=== PATIENT | female | born 1965 | race Caucasian/White ===

== ENCOUNTER 2019-03-13 13:20 | Inpatient (IN) | payer OTHER ==
[~2019-03-13] VITALS: Ht 160 cm; Wt 81.6 kg
[~2019-03-13 13:20] MED LIST: ASPIR 8181 MG PO; BUSPIRONE HCL10 MG PO; CEFTRIAXONE2 G1 IVPB; CEFTRIAXONE40 MG/M1 IV; CEFUROXIME500 MG PO; CIPRO500 MG PO; CIPROFLOXACIN500 M1 PO; CLEOCIN HCL150 MG PO; COLACE100 MG PO; DOCUSATE SODIU100 MG PO; GLUCOTROL5 MG PO; HYDROCODONE-AP1 EAC6 PO; LANTUS SOL100 UNIT/1 SQ; LEVAQUIN 500 M500 M2 PO; LIPITOR 20 MG T20 M1 PO; MEDROLDOSEPACK PO; METFORMIN HCL500 MG PO; MINOCIN100 MG PO; MIRALAX17 GM PO; NORCO 5-325 TA1 EACH PO; ONDANSETRON HCL4 M2 PO; OXYCODONE HCL5 MG PO; PERCOCET 10-321 EACH PO; PERCOCET 5-3251 EACH PO; PERCOCET PO; PHENERGAN 25 MG25 M1 PO; PREDNISONE 20 M20 MG PO; PROAIR HFA8.5 GM INH; REGLAN 10 MG TA10 MG PO; ROCEPHIN 11 GM/1001 IV; TESSALON PERLE100 MG PO; TUMS PO; TYLENOL325 MG PO; ZESTRIL10 MG PO; ZPAK PO; ZYVOX600 MG PO
[2019-03-13] MEDS ORDERED: OMEPRAZOLE 20 M20 M1 PO (13:25)
[2019-03-13] MEDS ORDERED: GABAPENTIN 100100 MG PO (13:26)
[2019-03-13] MEDS ORDERED: ELIQUIS5 MG PO (13:26)
[2019-03-13 14:16] LABS: BE -2.6 mmol/L (-2 to +3); PCO2 32.5 mmHg (35.0-45.0); PO2 76.9 mmHg (75.0-100.0); pH 7.426 (7.340-7.450)
[2019-03-13 14:51] LABS: ABSOLUTE BASOPHILS 0.1 thou/uL (0.0-0.2); ABSOLUTE LYMPHOCYTES 2.2 thou/uL (0.8-5.3); ABSOLUTE MONOCYTES 0.6 thou/uL (0.0-1.2); ABSOLUTE NEUTROPHILS 15.5 thou/uL (1.6-8.1); BASOPHILS 0.6 %; HEMATOCRIT 35.8 % (37.0-47.0); HEMOGLOBIN 11.8 gm/dL (12.0-15.0); MCH 27.6 pg (26.0-34.0); MCHC 32.9 g/dL (28.0-37.0); MONOCYTES 3.4 %; MPV 7.5 fl. (7.2-11.1); NUCLEATED RBCS 0 /100WBC; PLATELET COUNT* 692 thou/uL (150-400); RBC 4.26 mil/uL (4.20-5.00); RDW-CV 16.5 % (10.5-14.5); WBC 18.5 thou/uL (4.0-11.0)
[2019-03-13 15:13] LABS: NT-PRO BRAIN NAT PEPTIDE 1344 pg/mL (<300); TROPONIN-I LEVEL <0.06 ng/mL (<0.06)
--- NOTE | 2019-03-13 15:25 | NUR ---
RIGHT BASILIC VESSEL ACCESSED FOR 5 TAIW[place]ESE DUAL LUMEN PICC. LINE PRE-TRIMMED TO 40 CM AND ADVANCED TO THE ZERO LOW WITH NO RESISTANCE MET. UPPER ARM CIRCUMFERENCE ABOVE INSERTION SITE = 13". SHERLOCK MAGNET AND 3CG CONFIRMATION OF TIP TERMINATION AT THE CAVOATRIAL JUNCTION APPRECIATED. GUIDE WIRE REMOVED, LINE FLUSHED AND INSERTIO SITE DRESSED. REPORT GIVEN TO NURSING STAFF AND DR KENDRICK.
[2019-03-13 15:28] LABS: CREATININE 1.2 mg/dL (0.6-1.3); POTASSIUM 3.9 mmol/L (3.5-5.1)
[2019-03-13 15:32] LABS: ALBUMIN 2.8 g/dL (3.4-5.0); MAGNESIUM 1.6 mg/dL (1.8-2.4); TOTAL BILIRUBIN 0.1 mg/dL (<0.1-1.0); TOTAL PROTEIN 7.3 g/dL (6.4-8.2)
[2019-03-13 16:13] LABS: URINE BILIRUBIN NEGATIVE (Negative); URINE BLOOD TRACE (Negative); URINE CLARITY CLOUDY; URINE COLOR YELLOW; URINE GLUCOSE-RANDOM 2+ (Negative); URINE KETONES NEGATIVE (Negative); URINE LEUKOCYTES-REFLEX NEGATIVE (Negative); URINE NITRITE-REFLEX NEGATIVE (Negative); URINE PROTEIN 3+ (Negative); URINE SPECIFIC GRAVITY >= 1.030 (1.005-1.030); URINE UROBILINOGEN 0.2 E.U./dl (0.2-1.0)
[2019-03-13 16:41] LABS: MUCUS None Seen strn/LPF (None Seen); SQUAMOUS >10 Many /LPF (0-3)
[2019-03-13 16:42] LABS: AMORPHOUS URATES Moderate /LPF (None Seen); HYALINE CASTS 0-3 Few /LPF (None Seen)
[2019-03-13 16:43] LABS: URINE RBC 0-2 Rare /HPF (0-2); URINE WBC-REFLEX 0-5 Rare /HPF (0-5)
--- NOTE | 2019-03-13 20:12 | NUR ---
ATTEMPTED TO CALL REPORT TO FLOOR. NURSE BUSY AND WILL CALL BACK
[2019-03-13 21:05] VITALS: BP 189/102
[2019-03-14 02:06] LABS: GLYCOHEMOGLOBIN (HGB A1C) 8.7 % (4.8-5.6)
[2019-03-14 04:49] LABS: HEMATOCRIT 31.3 % (37.0-47.0); MCHC 32.1 g/dL (28.0-37.0); MPV 7.7 fl. (7.2-11.1); RBC 3.72 mil/uL (4.20-5.00); RDW-CV 16.2 % (10.5-14.5); WBC 19.1 thou/uL (4.0-11.0)
--- NOTE | 2019-03-14 05:02 | NUR ---
PT ARRIVED 03/13/19 AT 2100, PT ALERT AND ORIENTED X4, TRANSFERS FROM WHEELCHAIR TO BED INDEPENDENTLY, PT INTRODUCED TO SURROUNDINGS, ASSESSMENT CVOMPLETE, PT COMPLAINS OF NECK/SHOULDER AREA PAIN AND LLQ PAIN FROM COUGHING, PAIN IMPROVED WITH IV PAIN MEDS, PT CONTINUES TO EXPERIENCE NAUSEA, NO EMESIS, IV FLUIDS INFUSING PT RESTS QUIETLY IN BED AT THIS TIME ON ROOM AIR WITH NO S/S ACUTE DISTRESS
[2019-03-14 05:44] LABS: ALBUMIN 2.4 g/dL (3.4-5.0); CALCIUM 8.2 mg/dL (8.5-10.1); CREATININE 1.3 mg/dL (0.6-1.3); MAGNESIUM 1.2 mg/dL (1.8-2.4); POTASSIUM 3.1 mmol/L (3.5-5.1); TOTAL BILIRUBIN 0.2 mg/dL (<0.1-1.0); TOTAL PROTEIN 6.6 g/dL (6.4-8.2)
[2019-03-14 08:10] VITALS: BP 186/99
--- NOTE | 2019-03-14 10:07 | NUR ---
MET WITH PT TO DISCUSS HOME SITUATION/DC PLANNING. PT LIVES WITH FRIEND IN [place]. SHE USES WALKER, W/C AND HAS PROSTHESIS THAT NEEDS RESIZED SINCE LOSING WT. PT HAS HAD HH IN PAST, CANNOT REMEMBER NAME OF AGENCY. SHE HAS ALSO BEEN TO SNF AT [facility] RECENT DEC. STATES HAS BEEN IN AND OUT OF HOSPITALS RECENTLY. PT FOLLOWS WITH DR BELCHER ON [facility]. SHE PLANS TO RETURN HOME AT DC. WILL FOLLOW
[2019-03-14 16:00] VITALS: BP 129/70
[2019-03-14 20:00] VITALS: BP 158/84
[2019-03-15] VITALS: BP 120/75
[2019-03-15 05:15] LABS: HEMATOCRIT 29.4 % (37.0-47.0); HEMOGLOBIN 9.4 gm/dL (12.0-15.0); MCH 27.3 pg (26.0-34.0); MCV 85.4 fL (80.0-100.0); MPV 7.6 fl. (7.2-11.1); RBC 3.44 mil/uL (4.20-5.00); RDW-CV 16.9 % (10.5-14.5); WBC 14.7 thou/uL (4.0-11.0)
[2019-03-15 05:25] LABS: ALBUMIN 2.3 g/dL (3.4-5.0); CALCIUM 8.2 mg/dL (8.5-10.1); CREATININE 1.1 mg/dL (0.6-1.3); MAGNESIUM 1.7 mg/dL (1.8-2.4); POTASSIUM 4.4 mmol/L (3.5-5.1); TOTAL BILIRUBIN 0.1 mg/dL (<0.1-1.0); TOTAL PROTEIN 6.2 g/dL (6.4-8.2)
[2019-03-15 08:00] VITALS: BP 144/79
[2019-03-15 16:00] VITALS: BP 160/80
--- NOTE | 2019-03-15 17:58 | NUR ---
ASSUMED CARE OF PATIENT AT APPROX 0730. ALERT AND OREINTED X4. ASSESSMENT COMPLETED AND CHARTED, VSS ON ROOM AIR. PAIN AND NAUSEA MANAGED WITH FENTANYL AND ZOFRAN. PATIENT NOTES TIME PAIN MEDICATION IS GIVEN AND CALLS OUT EXACTLY 4 HOURS LATER FOR MORE. PATIENT IS OBSERVED RESTING COMFORTABLY IN BED OR CHAIR UPON ROUNDS. UP WITH ASSIST TO BEDSIDE COMMODE OR WITH WHEELCHAIR TO THE BATHROOM. DIET ADVANCED TO FULL LIQUIDS AND IV FLUIDS DISCONTINUED TODAY. [place] PATCH TO LEFT SHOULDER/BACK AREA FOR PAIN. PATIENT HAS LEFT BKA WITH SOCK IN PLACE. PICC REMAINS IN UPPER RIGHT EXTREMITY, SITE HAS NO REDNESS OR DRAINAGE, FLUSHES AND DRAWS WITHOUT ISSUE. FALL PRECAUTIONS IN PLACE. CALL LIGHT IN REACH. HOURLY ROUNDS COMPLETED. NURSING WILL CONTINUE TO MONITOR.
[2019-03-15 21:00] VITALS: BP 135/74
--- NOTE | 2019-03-16 05:41 | NUR ---
PT REMAINED ALERT AND ORIENTED. MEDS GIVEN ORDERED. PT REQUESTED FENTANYL FOR PAIN EVERY 4 HOURS. PT UP WITH ASSISTANCE TO THE BATHROOM OR BEDSIDE COMMODE STAND PIVOT FROM BED OR CHAIR. NAUSEA RESOLVED WITH ZOFRAN. NO EMESIS. ON BEDSIDE. WILL CONTINUE TO MONITOR.
[2019-03-16 08:00] VITALS: BP 185/88
--- NOTE | 2019-03-16 11:52 | CON ---
[address] [address] CONSULTATION Name: LEVI HENLEY Room: [address] IN ..#: [id number] Admission: 03/13/19 Attend Phys: Marleen Messer MD Discharge: Date of : 61 Report #: [id number] THIS REPORT FOR: //name// CC: DMITRIY physician/PCP Marleen Messer DATE OF SERVICE: 03/13/2019 HISTORY OF PRESENT ILLNESS: This is a pleasant 53-year-old female with past medical history significant for type 2 diabetes, hypertension, peripheral vascular disease and gastroparesis, who is presenting with nausea and vomiting. The patient reports that she was recently diagnosed with gastroparesis at [facility]. She underwent EGD and gastric emptying study, both of which demonstrated delayed gastric emptying. The patient was placed on Reglan for management of gastroparesis. The patient reports nausea and vomiting for the last few weeks. She reports about 4-5 episodes of emesis per day, inability to keep anything down. The patient claims she has lost about 40 pounds since November due to her gastroparesis. She denies any significant change in her bowel habits. PAST MEDICAL HISTORY: Diabetes, peripheral vascular disease, hypertension, hyperlipidemia. PAST SURGICAL HISTORY: The patient had cholecystectomy, left leg below-knee amputation, toe amputations, appendectomy. FAMILY HISTORY: There is no family history of colorectal cancer or Reynolds-related neoplasia. SOCIAL HISTORY: The patient denies smoking or recreational drug use. She takes alcohol intermittently. REVIEW OF SYSTEMS: Negative except for what was mentioned in the HPI. PHYSICAL EXAMINATION: GENERAL: The patient is alert, awake, oriented x 3. HEENT: Pupils are equal, round, and reactive to light and accommodation. Mucous membranes are moist. NECK: There is no congestion. LUNGS: Clear to auscultation bilaterally. CARDIOVASCULAR: Rate and rhythm regular, S1 and S2 present. ABDOMEN: Soft. There is no significant distention, guarding or rigidity. EXTREMITIES: Left leg below-knee amputation noted. VITAL SIGNS: Temperature 36.9, pulse rate 104, respirations 18, blood pressure 158/84. [place] [address] CONSULTATION Name: LEVI HENLEY Room: [address]#: [id number] Admission: 03/13/19 Attend Phys: Marleen Messer MD Discharge: Date of : 61 Report #: [id number] LABORATORY DATA AND DIAGNOSTIC STUDIES: Hemoglobin 9.4, hematocrit 29.4, platelet count 563, WBC count 4.3. Sodium 142, potassium 4.4, chloride 110, bicarb 23, BUN 18, creatinine 1.1. Total bilirubin 0.1, AST 9, ALT 12, alkaline phosphatase 72. Abdomen and pelvis CT, this demonstrates a fatty liver status post cholecystectomy and appendectomy. ASSESSMENT AND PLAN: Pleasant 53-year-old female with past medical history of poorly controlled diabetes with peripheral vascular disease, below-knee amputation, neuropathy and gastroparesis, who is presenting with intractable nausea and vomiting. The patient reports she was recently diagnosed with gastroparesis at [facility]. 1. Management of gastroparesis. The only FDA approved drug for management of gastroparesis is Reglan. I placed the patient on Reglan 15 mg p.o. t.i.d. The patient has been made aware of the possible side effects including tremors and tardive dyskinesia. The patient recently had an EGD about one month back, which was unremarkable; therefore, I would not recommend an EGD to rule out peptic ulcer disease at this time. However, the patient is not responding adequately to Reglan. We can consider EGD and Botox injection of the pylorus with pyloric channel dilation for symptom relief. The patient was seen and examined on 03/13/2019. This note reflects that day of service. Thank you for this consult. <ELECTRONICALLY SIGNED> By: Nirav Christian MD 03/16/19 1152 1627 [id number] Christian MD /nt
[2019-03-16 17:31] VITALS: BP 172/82
--- NOTE | 2019-03-16 18:36 | NUR ---
PT A&Ox4. VITALS STABLE. INSULIN GIVEN AT EACH MEAL. FULL LIQUID DIET, WAITING FOR PICTURE COPYIST TO FURTHER DIET. PICC PATENT. UP WITH ASSIST. PAIN CONTROLLED WITH FENTANYL. NAUSEA CONTROLLED WITH ZOFRAN. NO GI PROCEDURE DONE TODAY, GE COMPLETED RECENTLY AND ON CHART. CALL LIGHT WITHIN REACH. WILL CONTINUE TO MONITOR.
[2019-03-16 21:40] VITALS: BP 171/90
[2019-03-17 05:38] LABS: HEMATOCRIT 31.8 % (37.0-47.0); HEMOGLOBIN 10.2 gm/dL (12.0-15.0); MCH 27.1 pg (26.0-34.0); MCHC 31.9 g/dL (28.0-37.0); MCV 84.9 fL (80.0-100.0); MPV 7.7 fl. (7.2-11.1); RBC 3.75 mil/uL (4.20-5.00); RDW-CV 16.8 % (10.5-14.5); WBC 11.9 thou/uL (4.0-11.0)
[2019-03-17 06:02] LABS: CALCIUM 8.9 mg/dL (8.5-10.1); CREATININE 1.1 mg/dL (0.6-1.3); MAGNESIUM 1.9 mg/dL (1.8-2.4); POTASSIUM 4.1 mmol/L (3.5-5.1)
--- NOTE | 2019-03-17 06:37 | NUR ---
PT REMAINED ALERT AND ORIENTED. MEDS GIVEN ORDERED. PAIN CONTROLLED WITH FENTANYL Q4H. ZOFRAN GIVEN PER PT REQUEST. HOURLY ROUNDING COMPLETED. WILL CONTINUE TO MONITOR.
--- NOTE | 2019-03-17 06:39 | NUR ---
BOTH LUMENS RIGHT UPPER ARM PICC WITH COMPLETE OCCLUSION. CATH-IVAN PROVIDED BY BUILDING SERVICES TECHNICIAN PER PROTOCOL. DE-CLOTTING SUCCESSFUL AFTER INDWELLING TIME OF 60 MINUTES. SALINE LOCK WAS INSERTED DURING TIME LINE NOT ACCESSABLE FOR REQUESTED IV MEDICATIONS.
[2019-03-17] MEDS ORDERED: PRINIVIL10 MG PO (07:10)
[2019-03-17 08:00] VITALS: BP 180/98
[2019-03-17 11:45] VITALS: BP 109/64
[2019-03-17 15:27] VITALS: BP 108/59
--- NOTE | 2019-03-17 18:53 | NUR ---
PT A&Ox4. VITALS STABLE. IV AND PICC PATENT. PAIN CONTROLLED WITH CURRENT REGIMEN. TOLERATING SOFT/FIBER RESTRICTED DIET. UP WITH STB IN WC. CALL LIGHT WITHIN REACH. WILL CONTINUE TO MONITOR.
[2019-03-17 20:00] VITALS: BP 98/52
--- NOTE | 2019-03-18 04:56 | NUR ---
ASSUMED CARE OF PT AT 1900 PT ALERT AND ORIENTED X4 VS AND ASSESSMENT STABLE . PT HAD PAIN MEDS PER ORDER. WILL CONTINUE PLAN OF CARE.
[2019-03-18 07:44] VITALS: BP 125/64
[2019-03-18] MEDS ORDERED: TRAMADOL 50 MG50 MG PO (12:24)
[2019-03-18] MEDS ORDERED: IRON325 PO (12:25)
[2019-03-18] MEDS ORDERED: SENNA S TABLET1 EACH PO (12:25)
[2019-03-18] MEDS ORDERED: REGLAN 10 MG TA10 MG PO (12:26)
[2019-03-18] MEDS ORDERED: OMEPRAZOLE 20 M20 M1 PO (12:26)
[2019-03-18] MEDS ORDERED: FOLIC ACID1 MG PO (12:28)
[2019-03-18 15:53] VITALS: BP 125/64
[2019-03-18 17:16] VITALS: BP 147/77
--- NOTE | 2019-03-18 18:54 | NUR ---
PT LEFT UNIT AT 1845 BY WHEELCHAIR WITH NURSING STAFF TO HOME. IV AND PICC OUT. STABLE UPON DISCHARGE. PAPER PRESCRIPTION AND CARENOTES GIVEN. BELONGINGS SENT WITH PT.
== END 2019-03-18 18:45 | disposition home or self-care (01) | DRG 74 ==
LOC: M.ERS 13:20 → M.ORTHSURG 17:42 → M.TBA-ER 17:42 → M.ORTHSURG 21:10
PROVIDERS: Personal Emergency Response Attendant; ADMIT Internal Medicine
PROC: 02HV33Z Insertion of Infusion Device into Superior Vena Cava, Percutaneous Approach (ICD-10-PCS; principal; 2019-03-13)
DX: E11.43 Type 2 diabetes mellitus with diabetic autonomic (poly)neuropathy (principal); E44.0 Moderate protein-calorie malnutrition; K31.84 Gastroparesis; E11.51 Type 2 diabetes mellitus with diabetic peripheral angiopathy without gangrene; E11.65 Type 2 diabetes mellitus with hyperglycemia; N18.3 Chronic kidney disease, stage 3 (moderate); I12.9 Hypertensive chronic kidney disease with stage 1 through stage 4 chronic kidney disease, or unspecified chronic kidney disease; M54.9 Dorsalgia, unspecified; Z90.49 Acquired absence of other specified parts of digestive tract; Z87.442 Personal history of urinary calculi; Z79.1 Long term (current) use of non-steroidal anti-inflammatories (NSAID); Z88.6 Allergy status to analgesic agent; Z88.7 Allergy status to serum and vaccine; Z88.8 Allergy status to other drugs, medicaments and biological substances; Z68.31 Body mass index [BMI] 31.0-31.9, adult; Z89.512 Acquired absence of left leg below knee

== ENCOUNTER 2019-07-03 17:05 | Emergency (ER) | payer OTHER ==
[~2019-07-03] VITALS: Ht 160 cm; Wt 84.8 kg
[~2019-07-03 17:05] MED LIST changes: +ELIQUIS5 MG PO; +FOLIC ACID1 MG PO; +GABAPENTIN 100100 MG PO; +IRON325 PO; +OMEPRAZOLE 20 M20 M1 PO; +PRINIVIL20 MG PO; +SENNA S TABLET1 EACH PO; +TRAMADOL 50 MG50 MG PO
[2019-07-03] MEDS ORDERED: LANTUS SUBQ (17:16)
[2019-07-03 17:45] LABS: ABSOLUTE BASOPHILS 0.1 thou/uL (0.0-0.2); ABSOLUTE EOSINOPHILS 0.3 thou/uL (0.0-0.7); ABSOLUTE LYMPHOCYTES 2.9 thou/uL (0.8-5.3); ABSOLUTE MONOCYTES 0.5 thou/uL (0.0-1.2); ABSOLUTE NEUTROPHILS 7.5 thou/uL (1.6-8.1); BASOPHILS 1.3 %; EOSINOPHILS 2.6 %; HEMATOCRIT 34.7 % (37.0-47.0); HEMOGLOBIN 11.2 gm/dL (12.0-15.0); LYMPHOCYTES 25.8 %; MCH 29.2 pg (26.0-34.0); MCHC 32.4 g/dL (28.0-37.0); MONOCYTES 4.5 %; NUCLEATED RBCS 0 /100WBC; PLATELET COUNT* 545 thou/uL (150-400); POLYS 65.8 %; RBC 3.86 mil/uL (4.20-5.00); RDW-CV 17.6 % (10.5-14.5); WBC 11.4 thou/uL (4.0-11.0)
[2019-07-03 17:55] LABS: BE -10.2 mmol/L (-2 to +3); PCO2 30.1 mmHg (35.0-45.0); PO2 102.7 mmHg (75.0-100.0)
[2019-07-03 18:03] LABS: ANION GAP 10 mmol/L (7-16); BUN 33 mg/dL (7-18); CALCIUM 9.6 mg/dL (8.5-10.1); CHLORIDE 106 mmol/L (98-107); CO2 20 mmol/L (21-32); CREATININE 1.4 mg/dL (0.6-1.3); GLUCOSE 203 mg/dL (70-99); POTASSIUM 5.1 mmol/L (3.5-5.1); SODIUM 136 mmol/L (136-145)
[2019-07-03 18:04] LABS: APTT 25.7 Seconds (25.0-31.3)
[2019-07-03 18:14] LABS: ALBUMIN 3.5 g/dL (3.4-5.0); ALKALINE PHOSPHATASE 143 U/L (46-116); LIPASE 240 U/L (73-393); NT-PRO BRAIN NAT PEPTIDE 93 pg/mL (<300); SGOT 22 U/L (15-37); SGPT 20 U/L (30-65); TOTAL BILIRUBIN 0.2 mg/dL (<0.1-1.0); TOTAL PROTEIN 8.2 g/dL (6.4-8.2); TROPONIN-I LEVEL <0.06 ng/mL (<0.06)
[2019-07-03 20:29] LABS: URINE BILIRUBIN NEGATIVE (Negative); URINE BLOOD NEGATIVE (Negative); URINE COLOR YELLOW; URINE GLUCOSE-RANDOM NEGATIVE (Negative); URINE KETONES NEGATIVE (Negative); URINE LEUKOCYTES-REFLEX NEGATIVE (Negative); URINE PROTEIN 2+ (Negative); URINE UROBILINOGEN 0.2 E.U./dl (0.2-1.0)
[2019-07-03 20:30] LABS: URINE CLARITY HAZY; URINE NITRITE-REFLEX POSITIVE (Negative)
[2019-07-03 20:39] LABS: BACTERIA-REFLEX >30 Many /HPF (None Seen); CASTS None Seen /LPF (None Seen); CRYSTALS None Seen /LPF (None Seen); SQUAMOUS NONE SEEN /LPF (0-3); URINE RBC None Seen /HPF (0-2)
[2019-07-03] MEDS ORDERED: ZANAFLEX4 MG PO (20:40)
[2019-07-03] MEDS ORDERED: PYRIDIUM100 M1 PO (20:40)
[2019-07-03] MEDS ORDERED: CEFDINIR300 MG PO (20:42)
[2019-07-03 20:58] VITALS: BP 144/76
--- NOTE | 2019-07-04 13:03 | EKG ---
[place] [address] ELECTROCARDIOGRAM REPORT Name: LEVI HENLEY Room: [facility]#: [id number] Admission: 07/03/19 Attend Phys: Discharge: 07/03/19 Date of : 61 Report #: [id number] THIS REPORT FOR: //name// [facility] ED Test Date: 2019-07-03 Test Time: 17:18:42 Pat Name: LEVI HENLEY Department: Room: Gender: F Weatherization And Housing Inspector: MAYTE : 1965 Requested By: Mary Ann Rascon Order Number: [id number] MD: Nate Mcdaniel Measurements Intervals [place] Rate: 111 P: 23 [place]: 139 QRS: 71 QRSD: 82 T: 19 QT: 322 QTc: 438 Interpretive Statements Sinus tachycardia Baseline wander in lead(s) V1 Compared to ECG 08/12/2017 12:14:19 No significant changes Electronically Signed On 07-04-2019 13:03:37 CDT by Nate Mcdaniel [email or web address] <ELECTRONICALLY SIGNED> By: Nate Mcdaniel MD, [facility] 07/04/19 1303 1718 1718 Nate Mcdaniel MD, [facility] /EPI
== END 2019-07-03 21:32 | disposition home or self-care (01) ==
LOC: M.ERS 17:05
PROVIDERS: Nurse Practitioner Family
DX: J20.9 Acute bronchitis, unspecified (principal); R11.2 Nausea with vomiting, unspecified; R19.7 Diarrhea, unspecified; N39.0 Urinary tract infection, site not specified; E11.43 Type 2 diabetes mellitus with diabetic autonomic (poly)neuropathy; K31.84 Gastroparesis; I10 Essential (primary) hypertension; Z90.49 Acquired absence of other specified parts of digestive tract; Z89.429 Acquired absence of other toe(s), unspecified side; Z87.442 Personal history of urinary calculi; Z89.512 Acquired absence of left leg below knee; Z79.4 Long term (current) use of insulin; Z88.2 Allergy status to sulfonamides; Z91.018 Allergy to other foods; Z88.4 Allergy status to anesthetic agent; Z91.09 Other allergy status, other than to drugs and biological substances

== ENCOUNTER 2020-06-10 12:19 | Inpatient (IN) | payer OTHER ==
[~2020-06-10] VITALS: Ht 160 cm; Wt 104.3 kg
--- NOTE | ~2020-06-10 | PROC ---
[address] [address] PROCEDURE REPORT Name: LEVI HENLEY Room: [address] IN ..#: [id number] Admission: 06/10/20 Attend Phys: Emmett Cervantes MD Discharge: Date of : 61 Report #: [id number] THIS REPORT FOR: //name// cc: FAM - No family physician/PCP FAM - No family physician/PCP ~ THIS REPORT FOR: //name// For GI report, please see the Provation report in Perceptive 7 content. By: 0822Medical Records Staff WALDEMAR /ALTAGRACIA
[~2020-06-10 12:19] MED LIST changes: +CEFDINIR300 MG PO; +LANTUS SUBQ; +PYRIDIUM100 M1 PO; +ZANAFLEX4 MG PO
[2020-06-10 12:35] VITALS: BP 147/56
[2020-06-10 12:38] LABS: URINE BILIRUBIN NEGATIVE (Negative); URINE BLOOD TRACE (Negative); URINE CLARITY CLEAR; URINE COLOR YELLOW; URINE GLUCOSE-RANDOM 3+ (Negative); URINE KETONES NEGATIVE (Negative); URINE LEUKOCYTES-REFLEX NEGATIVE (Negative); URINE NITRITE-REFLEX NEGATIVE (Negative); URINE PROTEIN 2+ (Negative); URINE UROBILINOGEN 0.2 E.U./dl (0.2-1.0)
[2020-06-10] MEDS ORDERED: LOPRESSOR50 MG PO (12:40)
[2020-06-10] MEDS ORDERED: LIPITOR10 MG PO (12:41)
[2020-06-10] MEDS ORDERED: NORVASC5 M1 PO (12:41)
[2020-06-10] MEDS ORDERED: NOVOLOG100 UNIT/M SUBQ (12:42)
[2020-06-10] MEDS ORDERED: PROTONIX40 M2 PO (12:42)
[2020-06-10] MEDS ORDERED: MELATONIN5 MG SUBLING (12:43)
[2020-06-10] MEDS ORDERED: NITROSTAT0.4 M1 SUBLING (12:43)
[2020-06-10] MEDS ORDERED: HYDRALAZINE HC100 MG PO (12:44)
[2020-06-10 12:51] LABS: BACTERIA-REFLEX 1-9 Few /HPF (None Seen); CASTS None Seen /LPF (None Seen); CRYSTALS None Seen /LPF (None Seen); MUCUS None Seen strn/LPF (None Seen); SQUAMOUS 4-10 Moderate /LPF (0-3); URINE RBC 3-10 Few /HPF (0-2); URINE WBC-REFLEX 0-5 Rare /HPF (0-5)
[2020-06-10 12:57] LABS: ABSOLUTE BASOPHILS 0.1 thou/uL (0.0-0.2); ABSOLUTE EOSINOPHILS 0.3 thou/uL (0.0-0.7); ABSOLUTE LYMPHOCYTES 1.5 thou/uL (0.8-5.3); ABSOLUTE MONOCYTES 0.5 thou/uL (0.0-1.2); ABSOLUTE NEUTROPHILS 9.3 thou/uL (1.6-8.1); BASOPHILS 1.2 %; EOSINOPHILS 2.4 %; HEMATOCRIT 32.3 % (37.0-47.0); HEMOGLOBIN 10.4 gm/dL (12.0-15.0); LYMPHOCYTES 13.1 %; MCH 26.9 pg (26.0-34.0); MCHC 32.1 g/dL (28.0-37.0); MCV 83.7 fL (80.0-100.0); MONOCYTES 4.2 %; MPV 8.5 fl. (7.2-11.1); NUCLEATED RBCS 0 /100WBC; PLATELET COUNT* 408 thou/uL (150-400); POLYS 79.1 %; RBC 3.86 mil/uL (4.20-5.00); RDW-CV 14.8 % (10.5-14.5); WBC 11.8 thou/uL (4.0-11.0)
[2020-06-10 13:04] LABS: CALCIUM 9.2 mg/dL (8.5-10.1); CREATININE 2.6 mg/dL (0.6-1.3); POTASSIUM 4.3 mmol/L (3.5-5.1)
[2020-06-10 13:08] LABS: ALBUMIN 3.9 g/dL (3.4-5.0); TOTAL BILIRUBIN 0.2 mg/dL (<0.1-1.0); TOTAL PROTEIN 9.1 g/dL (6.4-8.2)
[2020-06-10 17:25] VITALS: BP 145/70
[2020-06-10 20:00] VITALS: BP 177/83
[2020-06-11] VITALS: BP 178/87
[2020-06-11 04:51] LABS: HEMATOCRIT 32.3 % (37.0-47.0); HEMOGLOBIN 10.3 gm/dL (12.0-15.0); MCH 26.7 pg (26.0-34.0); MCHC 31.9 g/dL (28.0-37.0); MCV 83.7 fL (80.0-100.0); MPV 8.6 fl. (7.2-11.1); RBC 3.86 mil/uL (4.20-5.00); RDW-CV 15.2 % (10.5-14.5); WBC 14.1 thou/uL (4.0-11.0)
[2020-06-11 04:59] VITALS: BP 150/76
[2020-06-11 05:05] LABS: CALCIUM 9.4 mg/dL (8.5-10.1); POTASSIUM 4.9 mmol/L (3.5-5.1)
[2020-06-11 10:00] VITALS: BP 208/87
[2020-06-11 11:55] LABS: HEMOGLOBIN 10.1 gm/dL (12.0-15.0)
--- NOTE | 2020-06-11 19:00 | NUR ---
PT. AOX4, COPIOUS AMOUNT OF BLOOD CLOT EMESIS NOTED IN BASIN, NOTIFIED DR. VELASQUEZ TO ASSESS. ORDERS AND CONSULTS RECEIVED. PRN N/V MED ADMINISTERED AND RELIEVED SYMPTOMS. PRN PAIN MEDS ADMINISTERED, PAIN CONTROL EFFECTIVE. PT. ROOM CLEANED UP THROUGHOUT SHIFT. CALL LIGHT AND PERSONAL BELONGINGS PLACED WITHIN REACH. PT IN BED, WATCHING TV, IN NO APPARENT DISTRESS, AT SHIFT CHANGE.
[2020-06-11 20:00] VITALS: BP 209/90
[2020-06-11 23:28] LABS: HEMATOCRIT 31.8 % (37.0-47.0); HEMOGLOBIN 10.4 gm/dL (12.0-15.0)
[2020-06-12] VITALS: BP 181/88
[2020-06-12 00:55] LABS: URINE BILIRUBIN NEGATIVE (Negative); URINE BLOOD TRACE (Negative); URINE CLARITY CLEAR; URINE COLOR YELLOW; URINE GLUCOSE-RANDOM 3+ (Negative); URINE KETONES TRACE (Negative); URINE LEUKOCYTES NEGATIVE (Negative); URINE NITRITE POSITIVE (Negative); URINE PROTEIN 3+ (Negative); URINE UROBILINOGEN 0.2 E.U./dl (0.2-1.0)
[2020-06-12 01:20] LABS: BACTERIA >30 Many /HPF (None Seen); CASTS None Seen /LPF (None Seen); CRYSTALS None Seen /LPF (None Seen); MUCUS 0-3 Light strn/LPF (None Seen); SQUAMOUS 0-3 Few /LPF (0-3); URINE RBC 3-10 Few /HPF (0-2); URINE WBC >25 Many /HPF (0-5); WBC CLUMPS Many (None Seen)
[2020-06-12 03:45] LABS: AMP/METHAMP Negative (Negative); BARBITURATES Negative (Negative); BENZODIAZEPINES Negative (Negative); COCAINE Negative (Negative); METHADONE Negative (Negative); OPIATES Negative (Negative); PCP Negative (Negative); THC Negative (Negative)
[2020-06-12 03:54] VITALS: BP 157/71
[2020-06-12 05:00] LABS: HEMATOCRIT 30.4 % (37.0-47.0); HEMOGLOBIN 9.7 gm/dL (12.0-15.0); MCH 26.9 pg (26.0-34.0); MCHC 31.8 g/dL (28.0-37.0); MCV 84.6 fL (80.0-100.0); MPV 8.5 fl. (7.2-11.1); RBC 3.59 mil/uL (4.20-5.00); RDW-CV 15.2 % (10.5-14.5); WBC 16.6 thou/uL (4.0-11.0)
--- NOTE | 2020-06-12 05:12 | NUR ---
ASSUMED PATIENT CARE AT 1900. PATIENT ALERT AND ORIENTED TIMES FOUR. COMPLAINTS OF PAIN NOTED AND MANAGED WITH IV MEDICATIONS. ABLE TO TRANSFER SELF TO BSC. SOME EMESIS NOTED EARLY IN THE EVENING. NO EMESIS OVERNIGHT. MINIMAL BLOOD NOTED IN SPUTUM WHEN COUGHING. ANXIOUS ABOUT WHAT IS GOING ON AND PROCEDURES BEING DONE. EDUCATION DONE WITH PATIENT. PATIENT STATES THAT SHE USUALLY HAS A PICC LINE WHEN INPATIENT. 22G IN PL[address] IN LEFT HAND AT THIS TIME AFTER SEVERAL ATTEMPTS. FLUIDS INFUSING. INSTALLER TECHNICIAN AND HOURLY ROUNDING COMPLETED DOCUMENTED
[2020-06-12 05:20] LABS: CALCIUM 9.3 mg/dL (8.5-10.1); MAGNESIUM 2.1 mg/dL (1.8-2.4); POTASSIUM 4.8 mmol/L (3.5-5.1)
[2020-06-12 10:00] VITALS: BP 152/69
[2020-06-12 12:32] VITALS: BP 181/83
[2020-06-12 16:15] VITALS: BP 169/86
[2020-06-12 17:06] LABS: COMPLEMENT-C4 45 mg/dL (14-44)
--- NOTE | 2020-06-12 19:36 | NUR ---
PT. AOX4, VSS, SR-ST ON MONITOR, PAIN UNDER CONTROL. NO N/V THROUGHOUT SHIFT. PT. STAYED IN BED MOST OF THE DAY. COVID SENDOUT ORDER PLACED FOR SPECIMEN FROM 06/11/20. EGD POSTPONED TO TOMORROW, PENDING COVID RESULT. CALL LIGHT AND PERSONAL BELONGINGS PLACED WITHIN REACH. PT. IN BED, SLEEPING, IN NO APPARENT DISTRESS, AT SHIFT CHANGE.
[2020-06-12 20:00] VITALS: BP 169/75
[2020-06-13] VITALS: BP 148/71
[2020-06-13 02:05] LABS: HEPATITIS B SURFACE AG Negative (Negative)
[2020-06-13 04:00] VITALS: BP 148/71; BP 152/70
[2020-06-13 05:21] LABS: CALCIUM 8.7 mg/dL (8.5-10.1); CREATININE 1.6 mg/dL (0.6-1.3); POTASSIUM 4.4 mmol/L (3.5-5.1)
--- NOTE | 2020-06-13 05:38 | NUR ---
ASSUMED PATIENT CARE AT 1900. PATIENT ALERT AND ORIENTED TIMES FOUR. MINOR COMPLAINTS OF PAIN NOTED. CONTROLLED WITH IV PAIN MEDICATION. STATES THAT SHE IS FEELING BETTER. SOME EMESIS NOTED APPTOX 2300. THINKS SHE ATE TOO MUCH AT DINNER. EDUCATION DONE. CHIEF DIVERSITY OFFICER AND HOURLY ROUNDING COMPETED DOCUMENTED.
[2020-06-13 07:30] VITALS: BP 166/67
--- NOTE | 2020-06-13 16:28 | NUR ---
CM ATTEMPTED TO ASSESS THE PT FOR D/C PLANNING NEEDS VIA TELEPHONE THE PT IS CURRENTLY IN ISOLATION OF ENHANCED PRECAUTIONS D/T COVID 19. PT DID NOT ANSWER THE PHONE, OR HER CELL PHONE. CM WILL F/U WITH THIS PT AT ANOTHER TIME.
[2020-06-13 20:00] VITALS: BP 146/57
--- NOTE | 2020-06-13 20:00 | NUR ---
RECEIVED REPORT AND ASSUMDED CARE OF PT, ASSESSMENT COMPLETED. PT C/O CONSTANT GERALD FLANK PAIN, MEDS GIVEN APPROX 1 HR AGO. ASSISTED TO BSC, PT ABLE TO TRANSFER INDEPENDENTLY WITHOUT LT LEG PROSTHESIS. TELEMETRY ON SHOWING ST. WILL CONT TO MONITOR AND ASSIST NEEDED.
[2020-06-14] VITALS: BP 150/61
[2020-06-14 04:14] VITALS: BP 160/60
--- NOTE | 2020-06-14 07:22 | NUR ---
SLEPT WELL TONIGHT EVEN WITH COMPLAINTS OF CONSTANT GERALD FLANK PAIN. PAIN MEDS EFFECTIVE. UP TO BSC WITH SBA. TELEMETRY CONT TO SHOW SR/ST. NO CHANGE IN ASSESSMENT. HS GOALS OF REST AND SAFETY ACHIEVED. HOURLY ROUNDING OBSERVED.
[2020-06-14 07:30] VITALS: BP 152/69
[2020-06-14 09:39] VITALS: BP 152/69
[2020-06-14 12:06] LABS: GLOBULIN TOTAL 4.2 g/dL (2.2-3.9); M-SPIKE Not Observed g/dL (Not Observed)
[2020-06-14 15:23] LABS: ALBUMIN 2.9 g/dL (3.4-5.0); CALCIUM 8.3 mg/dL (8.5-10.1); CREATININE 1.6 mg/dL (0.6-1.3); POTASSIUM 3.5 mmol/L (3.5-5.1); TOTAL BILIRUBIN 0.2 mg/dL (<0.1-1.0); TOTAL PROTEIN 6.9 g/dL (6.4-8.2)
[2020-06-14 16:21] LABS: ABSOLUTE BASOPHILS 0.1 thou/uL (0.0-0.2); ABSOLUTE EOSINOPHILS 0.1 thou/uL (0.0-0.7); ABSOLUTE LYMPHOCYTES 1.9 thou/uL (0.8-5.3); ABSOLUTE MONOCYTES 0.7 thou/uL (0.0-1.2); ABSOLUTE NEUTROPHILS 9.3 thou/uL (1.6-8.1); EOSINOPHILS 0.4 %; HEMATOCRIT 26.3 % (37.0-47.0); HEMOGLOBIN 8.6 gm/dL (12.0-15.0); LYMPHOCYTES 15.5 %; MCH 27.1 pg (26.0-34.0); MCHC 32.6 g/dL (28.0-37.0); MCV 83.1 fL (80.0-100.0); MONOCYTES 5.6 %; MPV 8.2 fl. (7.2-11.1); NUCLEATED RBCS 0 /100WBC; PLATELET COUNT* 395 thou/uL (150-400); POLYS 77.5 %; RBC 3.16 mil/uL (4.20-5.00); RDW-CV 15.1 % (10.5-14.5)
[2020-06-14 19:06] VITALS: BP 154/70
[2020-06-14 19:07] LABS: ANA INTERPRETATION Positive (())
[2020-06-14 20:00] VITALS: BP 152/67
[2020-06-15] VITALS (7 sets, daily range): BP systolic 94–135; BP diastolic 29–55
--- NOTE | 2020-06-15 03:11 | NUR ---
PT ALERT ORIENTED. UP WITH STAND BY ASSIST. Harshal DOE. NPO AT ME FOR GASTRIC EMPTY STUDY. ON RA. FENTANYL AND HYDROCODONE GIVEN FOR PAIN. TELEMETRY SHOWS SR. HS BLOOD GLUCOSE 57 PO JUICE GIVEN AND SNACK. UP TO 98. HS INSULIN HELD. WCTM
--- NOTE | 2020-06-15 08:21 | NUR ---
RECIEVED REPORT AROUND 709. ASSUMED CARE. VS AND ASSESSMENT CHARTED. HOOKED TO HEART MONITOR. IV INTACT WITH FLUIDS RUNNING. LYING IN BED AND THEN GOT UP TO WHEEL CHAIR TO GO TO GASTRIC EMPTY STUDY THIS MORNING.
[2020-06-15 08:23] LABS: CALCIUM 7.9 mg/dL (8.5-10.1); CREATININE 1.5 mg/dL (0.6-1.3); POTASSIUM 3.9 mmol/L (3.5-5.1)
--- NOTE | 2020-06-15 08:34 | NUR ---
CM SPOKE TO THE PT TO DISCUSS HER HOME SITUATION, DISCHARGE PLANNING, AND TO INFORM OF THE ROLE OF CM. 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 PT RESIDES AT HOME WITH HER SPOUSE. PT USES A WALKER AND WHEELCHAIR AT HOME FOR MOBILITY, AND SHE ALSO OWNS A CANE. PT INFORMS THAT SHE IS CURRENTLY ON-SERVICE WITH [facility] FOR PT AND OT. PT PLANS TO RETURN HOME AT D/C AND IS HOPEFUL TO GET TO D/C TODAY. PT ALSO INFORMS THAT SHE WILL NEED ASSISTANCE WITH [id number] AT D/C. CM INFORMED THIS PT THAT HER INSURANCE IS OON WITH OUR FACILITY AND WILL NEED TO TRANSFER TO AN [facility] FACILITY ONCE MEDICALLY STABLE IF SHE DOES NOT D/C HOME TODAY. CM TO F/U WITH THE PHYSUICIAN TO INFORM OF THIS WELL. CM WILL REMAIN AVAILABLE TO ASSIST AND FOLLOW NEEDED [facility] PHONE: [phone] FAX: [phone]
--- NOTE | 2020-06-15 09:59 | CON ---
[address] [address] CONSULTATION Name: LEVI HENLEY Room: [address] IN .#: [id number] Admission: 06/10/20 Attend Phys: Emmett Cervantes MD Discharge: Date of : 61 Report #: [id number] THIS REPORT FOR: //name// cc: DMITRIY - Ashley family physician/PCP DMITRIY - No family physician/PCP ~ THIS REPORT FOR: //name// CC: [facility] physician/PCP Emmett Cervantes DATE OF SERVICE: 06/11/2020 REQUESTING PHYSICIAN: Emmett Cervantes MD HISTORY OF PRESENT ILLNESS: This is a 54-year-old female with history of diabetes mellitus, peripheral vascular disease, hypertension, and gastroparesis, who has had upper endoscopies in the past with retained food in the stomach. Also, has had gastric emptying test suggestive of gastroparesis. She has been placed on high dose of Reglan. We were consulted with her having hematemesis. She has had persistent vomiting. Her hemoglobin since admission has been stable. PAST MEDICAL HISTORY: Significant for diabetes mellitus type 2, hypertension, peripheral vascular disease, gastroparesis, insomnia, gastroesophageal reflux disease, hyperlipidemia, diverticulosis, obesity, left leg amputation. ALLERGIES: SIGNIFICANT TO SUCCINYLCHOLINE, FLONASE, SULFA, VITAMIN E. MEDICATIONS: Please refer to MAR. SOCIAL HISTORY: The patient has multiple medical comorbidities. The patient denies tobacco use, but may have occasional alcohol use. FAMILY HISTORY: Noncontributory. PHYSICAL EXAMINATION: VITAL SIGNS: Reveals blood pressure of 150/76, respirations 18, pulse 108, temperature 98.8. LUNGS: Clear. CARDIOVASCULAR: Regular. ABDOMEN: Soft, mildly tender to palpation in the epigastric region. LABORATORY DATA: Reveal sodium of 143, potassium 4.8, BUN is 36, creatinine is 2.0, glucose 403. Liver function tests all within normal limits. Magnesium is 2.1, alkaline phosphatase is 250. WBC 16.6 with hemoglobin of 9.7 and platelet [facility] [address] [place] [address] CONSULTATION Name: LEVI HENLEY Room: [address] IN [facility].#: [id number] Admission: 06/10/20 Attend Phys: Emmett Cervantes MD Discharge: Date of : 61 Report #: [id number] count of 455. IMAGING: CT of abdomen and pelvis was obtained. There is no acute CT finding to explain the patient's abdominal pain. There is mild bibasilar multifocal ground-glass opacities, which may suggest atelectasis or pneumonitis. ASSESSMENT AND PLAN: The patient with long history of poorly controlled diabetes and gastroparesis, who has had hematemesis. We will continue the Protonix as this has been prescribed. We will await her COVID testing prior to her upper endoscopy. We will make further recommendation based on the upper endoscopy finding. <ELECTRONICALLY SIGNED> By: Kendra Rene MD 06/15/20 0959 1113 [id number] Rene MD /nt
[2020-06-15 10:30] LABS: ABSOLUTE BASOPHILS 0.1 thou/uL (0.0-0.2); ABSOLUTE EOSINOPHILS 0.1 thou/uL (0.0-0.7); ABSOLUTE LYMPHOCYTES 2.5 thou/uL (0.8-5.3); ABSOLUTE MONOCYTES 0.8 thou/uL (0.0-1.2); ABSOLUTE NEUTROPHILS 7.8 thou/uL (1.6-8.1); BASOPHILS 0.8 %; HEMATOCRIT 26.6 % (37.0-47.0); HEMOGLOBIN 8.5 gm/dL (12.0-15.0); LYMPHOCYTES 22.2 %; MCH 27.2 pg (26.0-34.0); MCV 84.9 fL (80.0-100.0); MONOCYTES 6.6 %; MPV 8.4 fl. (7.2-11.1); NUCLEATED RBCS 0 /100WBC; PLATELET COUNT* 363 thou/uL (150-400); POLYS 69.4 %; RBC 3.14 mil/uL (4.20-5.00); RDW-CV 15.3 % (10.5-14.5); WBC 11.3 thou/uL (4.0-11.0)
[2020-06-15 14:07] LABS: URINE PROTEIN (MG/DL) 366.3 mg/dL (Not Estab.)
[2020-06-15 17:51] LABS: URINE BILIRUBIN NEGATIVE (Negative); URINE BLOOD NEGATIVE (Negative); URINE CLARITY CLEAR; URINE COLOR YELLOW; URINE GLUCOSE-RANDOM 1+ (Negative); URINE KETONES NEGATIVE (Negative); URINE LEUKOCYTES-REFLEX 1+ (Negative); URINE PROTEIN 3+ (Negative); URINE SPECIFIC GRAVITY 1.025 (1.005-1.030); URINE UROBILINOGEN 0.2 E.U./dl (0.2-1.0)
[2020-06-15 17:58] LABS: URINE NITRITE-REFLEX POSITIVE (Negative)
--- NOTE | 2020-06-15 18:20 | NUR ---
NO NEW CHANGES FROM MORNING ASSESSMENT. HAS GASTRIC EMPTYING THIS SHIFT. FINDINGS 4HR GASTRIC RETENTION 35%. PAIN MEDICATION PER MAR. IS RECIEVING FENTANYL Q3H. HOURLY ROUNDING PERFORMED. CALL LIGHT AND BEDSIDE TABLE WITHIN REACH. WILL CONTINUE TO MONITOR.
[2020-06-15 18:22] LABS: SQUAMOUS >10 Many /LPF (0-3)
[2020-06-15 18:23] LABS: CRYSTALS None Seen /LPF (None Seen); HYALINE CASTS 0-3 Few /LPF (None Seen); MUCUS None Seen strn/LPF (None Seen); URINE RBC 0-2 Rare /HPF (0-2); URINE WBC-REFLEX 0-5 Rare /HPF (0-5)
[2020-06-16] VITALS: BP 111/43
--- NOTE | 2020-06-16 05:30 | NUR ---
PT ALERT ORIENTED. PT WANTING PAIN MEDICATION Q ONE AND A HALF HOURS. PT TEACHING RE PAIN MEDICATION LOWERING BP AND SPACING PAIN MED OUT. EARLIER BP 94/29 PT HAD TO WAIT FOR BP TO COME UP. MED SURG STATUS. WCTM
[2020-06-16 08:00] VITALS: BP 107/40
--- NOTE | 2020-06-16 08:30 | NUR ---
RECIEVED REPORT AROUND 0710. ASSUMED CARE. VS AND ASSESSMENT CHARTED. PATIENT REPORTED 8 OUT 10 PAIN. THROBBING IN BILATERAL FLANKS. PT WAS TOLD DUE TO BE DISCHARGING POSSIBLY TODAY TO TRY TO USE PO PAIN OPTIONS INSTEAD OF IV PAIN MEDICATION. BP WAS ALSO ON THE LOWER SIDE. CALL IV INTACT WITH FLUIDS RUNNING. CALL LIGHT WITHIN REACH. WILL CONTINUE TO MONITOR.
[2020-06-16] MEDS ORDERED: ERYTHROMYCIN250 M1 PO (09:14)
[2020-06-16] MEDS ORDERED: MACROBID 100 M100 MG PO (09:20)
[2020-06-16 10:13] LABS: HEMATOCRIT 25.3 % (37.0-47.0); HEMOGLOBIN 8.2 gm/dL (12.0-15.0); MCH 27.2 pg (26.0-34.0); MCHC 32.2 g/dL (28.0-37.0); MCV 84.6 fL (80.0-100.0); MPV 8.6 fl. (7.2-11.1); RDW-CV 15.2 % (10.5-14.5); WBC 9.3 thou/uL (4.0-11.0)
[2020-06-16 10:35] LABS: ALBUMIN 2.7 g/dL (3.4-5.0); CREATININE 1.8 mg/dL (0.6-1.3); TOTAL BILIRUBIN 0.2 mg/dL (<0.1-1.0); TOTAL PROTEIN 6.2 g/dL (6.4-8.2)
[2020-06-16 11:41] VITALS: BP 107/40
--- NOTE | 2020-06-16 11:43 | NUR ---
CM INFORMED THAT THE PT WILL D/C HOME TODAY AND WILL RESUME HE HH SERVICES WITH [facility]. CM CONTACTED [facility] TO INFORM OF THE PT'S D/C AND FAXED THE PT'S D/C ORDERS. [facility] RN TO CONTACT THE PT TO ARRANGE A TIME TO VISIT. CM WILL REMAIN AVAILABLE TO ASSIST AND FOLLOW NEEDED. [facility] PHONE: [phone] FAX: [phone]
--- NOTE | 2020-06-16 12:06 | PATH ---
[address] [address] PATHOLOGY RPT PROCEDURE Name: LEVI HENLEY Room: [address] IN .R.#: [id number] Admission: 06/10/20 Date of : 61 Discharge: Report #: [id number] Path Case #: [id number] [facility] Accession Number: [id number] . 01 Material submitted: . stomach - MILD GASTRITIS . 02 Diagnosis: Tissue submitted as "mild gastritis": - Moderate chronic gastritis suggesting reactive gastropathy (chemical gastritis), with mild fibrosis, negative for Helicobacter pylori organisms and dysplasia. (CHULA/db; 06/16/2020) LBQ 06/16/2020 1117 Local . 02 Comment: Special stain: H. pylori immuno . 02 Electronically signed: . David Bryan MD, Pathologist NPI- [id number] . 01 Gross description: . The specimen is received in formalin, labeled "Schnirch, Levi, mild gastritis" and consists of multiple fragments of danielle tissue measuring 0.9 x 0.5 x 0.3 cm in aggregate which are entirely submitted in A1. (SDY; 06/15/2020) SYU/SYU 06/15/2020 1342 Local . 02 Pathologist provided ICD-10: K29.50 . 02 CPT . 481401, G04185 Specimen Comment: A courtesy copy of this report has been sent to [phone] Specimen Comment: [phone] Specimen Comment: Report sent to / DR VELASQUEZ Performed at: [address], [place], [place] [id number] MD Franck Suazo MD Phone: [phone] Performed at: [address] [facility] [address] [address], [place], [place] [id number] MD David Bryan MD Phone: [phone]
--- NOTE | 2020-06-16 16:13 | NUR ---
NO NEW CHANGES FROM MORNING ASSESSMENT. DISCHARGE ORDERS RECIEVED. DISCHARGE PACKET GIVEN TO PATIENT AND GONE OVER. PT COMMUNICATED UNDERSTANDING HAD NO QUESTIONS. PT VOICED HAVING PURPLE LEOPARD GLASSES. GLASSES WERE NOT FOUND. NOT LISTED IN ADMIT BELONGINGS. ER, SECURITY, AND DEBT COUNSELOR NOTIFIED. NONE OF THEM SAW OR HAD THEM. IV TAKEN OUT. PT LEFT WITH PAPERWORK AND BELONGINGS WITH NURSING STAFF OFF UNIT AT 1610.
== END 2020-06-16 16:10 | disposition home health service (06) | DRG 377 ==
LOC: M.ERS 12:19 → M.2W 15:52 → M.TBA-ER 15:52 → M.2W 15:52 → M.TBA-ER 17:27 → M.2W 18:08
PROVIDERS: Internal Medicine; Internal Medicine Nephrology; Physician Assistant; ADMIT Internal Medicine; ATTEND Internal Medicine
PROC: 0DB68ZX Excision of Stomach, Via Natural or Artificial Opening Endoscopic, Diagnostic (ICD-10-PCS; principal; 2020-06-14)
DX: K29.71 Gastritis, unspecified, with bleeding (principal); N17.0 Acute kidney failure with tubular necrosis; E11.00 Type 2 diabetes mellitus with hyperosmolarity without nonketotic hyperglycemic-hyperosmolar coma (NKHHC); D68.59 Other primary thrombophilia; E87.1 Hypo-osmolality and hyponatremia; N39.0 Urinary tract infection, site not specified; Z68.41 Body mass index [BMI] 40.0-44.9, adult; Z20.828 Contact with and (suspected) exposure to other viral communicable diseases; I10 Essential (primary) hypertension; E11.51 Type 2 diabetes mellitus with diabetic peripheral angiopathy without gangrene; G47.00 Insomnia, unspecified; K21.9 Gastro-esophageal reflux disease without esophagitis; E78.5 Hyperlipidemia, unspecified; E66.9 Obesity, unspecified; E11.65 Type 2 diabetes mellitus with hyperglycemia; N18.3 Chronic kidney disease, stage 3 (moderate); E11.22 Type 2 diabetes mellitus with diabetic chronic kidney disease; E11.43 Type 2 diabetes mellitus with diabetic autonomic (poly)neuropathy; K31.84 Gastroparesis; D64.9 Anemia, unspecified; K44.9 Diaphragmatic hernia without obstruction or gangrene; B96.89 Other specified bacterial agents as the cause of diseases classified elsewhere; K57.91 Diverticulosis of intestine, part unspecified, without perforation or abscess with bleeding; Z89.612 Acquired absence of left leg above knee; Z88.2 Allergy status to sulfonamides; Z79.4 Long term (current) use of insulin; Z88.8 Allergy status to other drugs, medicaments and biological substances; Z90.49 Acquired absence of other specified parts of digestive tract; Z87.442 Personal history of urinary calculi; Z82.49 Family history of ischemic heart disease and other diseases of the circulatory system; Z79.899 Other long term (current) drug therapy